=== PATIENT | female | born 1935 | race Two or more races ===

== ENCOUNTER → 2017-11-25 | Emergency (ER) | payer OTHER ==
[~2017-11-25] VITALS: Ht 149.9 cm; Wt 32.7 kg
[~2017-11-25] MED LIST: ASPIR 8181 MG; ATACAND4 MG PO; ATROVENT 00.5 MG/2.5 IH; ATROVENT HFA12.9 GM IH; BONIVA2.5 MG PO; BREO ELLIPTA 21 EACH IH; BREO ELLIPTA I1 EACH IH; CALAN80 MG PO; CALTRATE 600600 MG PO; CARAFATE1 GM/10 ML; CARDIA PO; CATAPRES0.2 MG PO; DOLOGESIC CAPSU1 CAP PO; INTESTINEX1 CA1 PO; MILLIPRED5 MG PO; MULTI PURPOSE MC; OMEPRAZOLE20 MG PO; SINGULAIR4 MG PO; SYMBICORT 80/10.2 GM IH; TESSALON200 MG PO; TUSSIONEX PENNKI5 ML PO; VERAPAMIL HCL40 MG PO; ZANTAC150 MG; [UNRECOGNIZED DRUG - OTHER] IM; [UNRECOGNIZED DRUG - OTHER] PO
== END | disposition home or self-care (01) ==
LOC: ER 15:41
DX: B34.9 Viral infection, unspecified (principal); J44.9 Chronic obstructive pulmonary disease, unspecified; J84.10 Pulmonary fibrosis, unspecified; J11.1 Influenza due to unidentified influenza virus with other respiratory manifestations

== ENCOUNTER → 2017-12-22 | Emergency (ER) | payer OTHER ==
[~2017-12-22] VITALS: Ht 149.9 cm; Wt 29.9 kg
[~2017-12-22] MED LIST changes: +BENZONATATE200 M1; +COZAAR25 MG; +DIGOX125 MCG; +XOPENEX0.63 MG/3; +ZANTAC150 M3
== END | disposition home or self-care (01) ==
LOC: ER 09:11
DX: S01.121A Laceration with foreign body of right eyelid and periocular area, initial encounter (principal); S40.011A Contusion of right shoulder, initial encounter; S20.211A Contusion of right front wall of thorax, initial encounter; M25.50 Pain in unspecified joint; W26.8XXA Contact with other sharp object(s), not elsewhere classified, initial encounter; Y93.89 Activity, other specified; Y92.018 Other place in single-family (private) house as the place of occurrence of the external cause; Y99.8 Other external cause status